=== PATIENT | male | born 1965 | race Caucasian/White ===

== ENCOUNTER 2023-10-28 13:40 | Emergency (ER) | payer OTHER | END 2023-10-28 16:03 | disposition home or self-care (01) | LOC: MADERS 13:40 | DX: L98.9 Disorder of the skin and subcutaneous tissue, unspecified (principal); E11.9 Type 2 diabetes mellitus without complications; I10 Essential (primary) hypertension; E78.5 Hyperlipidemia, unspecified; F17.220 Nicotine dependence, chewing tobacco, uncomplicated; Z79.84 Long term (current) use of oral hypoglycemic drugs; Z79.899 Other long term (current) drug therapy | CPT/HCPCS: 99283 ==

== ENCOUNTER 2024-01-20 16:39 | Emergency (ER) | payer OTHER ==
[2024-01-20] MEDS ORDERED: Cephalexin 500 MG CAP ONE (17:38)
[2024-01-20] MEDS ORDERED: Ibuprofen 800 MG TAB ONE (17:38)
[2024-01-20] MEDS ORDERED: Sulfameth/Trimethoprim DS 800-160mg TAB ONE (17:38)
[2024-01-20] MEDS ORDERED: Boostrix 0.5 ML (Tdap) VIAL (>/=7 yrs of age) ONE (17:39)
== END 2024-01-20 17:47 | disposition home or self-care (01) ==
LOC: MADERS 16:39
DX: L03.115 Cellulitis of right lower limb (principal); L03.116 Cellulitis of left lower limb; E11.9 Type 2 diabetes mellitus without complications; I10 Essential (primary) hypertension; E78.5 Hyperlipidemia, unspecified; F17.220 Nicotine dependence, chewing tobacco, uncomplicated; Z79.84 Long term (current) use of oral hypoglycemic drugs; Z79.899 Other long term (current) drug therapy
CPT/HCPCS: 90471; 90715

== ENCOUNTER 2024-09-21 11:52 | Emergency (ER) | payer OTHER ==
[2024-09-21 13:18] LABS: PTT 29.1 sec (22.9-36.1); Prothrombin Time 13.5 sec (12.0-14.7)
[2024-09-21 13:21] LABS: D-Dimer Test 0.27 mcg/mL (0.27-0.43)
[2024-09-21 13:22] LABS: ALT (SGPT) 19 U/L (Less than 45); AST (SGOT) 16 U/L (11-34); Alkaline Phosphatase 128 U/L (40-110); Anion Gap 18 mmol/L (10-20); BUN (Urea Nitrogen) 17 mg/dL (8.4-25.7); Bilirubin, Total 0.6 mg/dL (0.3-1.2); Calc. Creatinine Clearance 0 mL/min (70-130); Calcium 9.2 mg/dL (7.8-10.44); Carbon Dioxide 20 mmol/L (22-29); Chloride 102 mmol/L (98-107); Estimated GFR 84; Globulin 3.6 g/dL (2.4-3.5); Glucose 186 mg/dL (70-105); Potassium 3.7 mmol/L (3.5-5.1); Protein, Total 7.6 g/dL (6.0-8.3); Sodium 136 mmol/L (136-145)
[2024-09-21 13:23] LABS: Acetaminophen Less than 10 mcg/mL (Less than 10); Alcohol Less than 10.0 mg/dL (Less than 10); Salicylate Less than 8.0 mg/dL (Less than 8.0)
[2024-09-21 13:24] LABS: Troponin I Less than 0.010 ng/mL (< 0.028)
[2024-09-21 13:32] LABS: Band 3 % (5-11); Hematocrit 42.4 % (42.0-52.0); Hemoglobin 14.1 g/dL (14.0-18.0); Lymphocytes 23 % (21-51); MDiff Complete? YES; Mean Corpuscular HGB CONC 33.2 g/dL (32.0-36.0); Mean Corpuscular Hemoglobin 28.9 pg (27.0-31.0); Mean Corpuscular Volume 86.9 fl (78.0-98.0); Mean Platelet Volume 10.1 fL (7.4-10.4); Monocytes 6 % (0-10); Neutrophil 68 % (42-75); Platelet Adequacy Comment Appears Adequate; Platelet Count 229 10x3/uL (130-400); RBC Distribution Width 11.9 % (11.5-14.5); Red Blood Cell (RBC) Count 4.88 mill/uL (4.70-6.10); White Blood Cell (WBC) Count 8.2 10x3/uL (4.8-10.8)
[2024-09-21] MEDS ORDERED: Acetaminophen 500 MG TAB ONE (15:04)
[2024-09-21] MEDS ORDERED: Aspirin Chewable 81 MG TAB ONE (15:04)
[2024-09-21 15:31] LABS: Troponin I Less than 0.010 ng/mL (< 0.028)
[2024-09-21] MEDS ORDERED: Sodium Chloride 0.9% 1,000 ML ONE (18:36)
[2024-09-21] MEDS ORDERED: Metoclopramide HCl 10 MG (2 mL) VIAL ONE (18:36)
[2024-09-21] MEDS ORDERED: fentaNYL 50 mcg/mL 1 mL Vial ONE (19:00)
[2024-09-21 19:12] LABS: Troponin I Less than 0.010 ng/mL (< 0.028)
== END 2024-09-21 20:55 | disposition short-term general hospital (02) ==
LOC: MADERS 11:52
DX: R55 Syncope and collapse (principal); R07.89 Other chest pain; R29.700 NIHSS score 0; F17.220 Nicotine dependence, chewing tobacco, uncomplicated
CPT/HCPCS: 36415; 70450; 71045; 80053; 80307; 83880; 84484; 85025; 85379; 85610; 85730; 93005; 96361; 96374; 96375; J2765; J3010; J7030